=== PATIENT | female | born 1955 ===

== ENCOUNTER 2018-02-27 16:24 | Day surgery (SDC) | payer OTHER, MEDICARE ==
[2018-02-27] MEDS ORDERED: DiphenhydrAMINE 50 mg/ml Inj ONE (16:26)
[2018-02-27] MEDS ORDERED: Iodixanol 320 MG/ML 100 ML BOTTLE IV ONE (16:27)
[2018-02-27] MEDS ORDERED: Sodium Chloride 0.9% 500 ML IV SCH (18:00)
[2018-02-27] MEDS ORDERED: Sodium Chloride 0.9% 500 ML IV ONE (18:34)
[2018-02-27] MEDS ORDERED: Oxycodone/Acetaminophen 5/325 mg Tab PO STA (19:35)
[2018-02-27 21:03] VITALS: RESP 14
[2018-02-27 22:06] VITALS: BP 110/70; PULSE 60; TEMP 97.8; O2SAT 97
--- NOTE | 2018-02-28 09:44 | CARDCATH ---
PROCEDURE DATE: 02/27/2018 LEFT HEARD CATHETERIZATION The patient is a 62 years old male who presented to [facility] because of paranoid ideation and was subsequently transferred to the emergency room when lab test for troponin was reported to be positive. The patient denies any chest pain and was unaware of any prior cardiac history. Cardiac catheterization was recommended. The procedure and its risks were fully explained to the patient who understood and agreed for the procedure. PROCEDURE: After local infiltration with 1% lidocaine, a 6-[place] sheath was placed to the right femoral artery. Left and right coronary angiography was performed with 6-[place] JL4 and JR4 diagnostic catheters. Left ventriculogram was performed with a 6-[place] pigtail catheter. The patient tolerated the procedure well without any complications. The patient was premedicated with Solu-Medrol, Benadryl, and Pepcid because of prior history of shellfish allergy. ANGIOGRAPHIC FINDINGS: Selective injection of the left coronary artery revealed left main to be a short normal vessel, bifurcated into medium-sized LAD, medium-sized normal circumflex artery, and a very small ramus intermedius branch at critical ostial stenosis of about 90% in severity. The rest of the left coronary circulation was angiographically unremarkable. Selective injection of the right coronary artery revealed a small nondominant vessel. This was angiographically unremarkable. Left ventriculogram performed in [place] projection revealed normal wall motion. Overall ejection fraction was estimated at 55%. CONCLUSION: Critical ostial disease of very small ramus intermedius branch that is less than 1 mm in diameter and otherwise unremarkable coronary circulation. There is normal left ventricular systolic function. RECOMMENDATIONS: No further cardiac workup is indicated. The patient will be transferred to [facility] after observing the patient for 5 hours of no bleeding. Art Hinton MD
== END 2018-02-27 22:00 | disposition short-term general hospital (02) ==
LOC: C.CATHLAB 16:24
PROVIDERS: ATTEND Specialist
DX: I25.10 Atherosclerotic heart disease of native coronary artery without angina pectoris (principal)
CPT/HCPCS: 93452; C1760; C1769; C1887; J1200; J1644; J2930; J7030; J7040; Q9967